=== PATIENT | female | born 1965 | race Two or more races ===

== ENCOUNTER 2024-12-02 07:22 | Emergency (ER) | payer MEDICAID ==
[~2024-12-02] VITALS: Ht 157.5 cm; Wt 59.0 kg
[2024-12-02 07:23] VITALS: O2SAT 98
[2024-12-02] MEDS: METHOCARBAMOL 500MG TABLET PO ONE (09:39)
[2024-12-02] MEDS: IBUPROFEN 600MG TABLET PO ONE (09:39)
[2024-12-02] MEDS ORDERED: IBUP-1455 MT (10:06)
[2024-12-02] MEDS ORDERED: METH-653 MT (10:06)
[2024-12-02 10:38] VITALS: BP 107/67; PULSE 79; RESP 16; TEMP 36.7; O2SAT 98
== END 2024-12-02 10:43 | disposition home or self-care (01) ==
LOC: ER 07:22
DX: S43.402A Unspecified sprain of left shoulder joint, initial encounter (principal); S43.401A Unspecified sprain of right shoulder joint, initial encounter; S83.91XA Sprain of unspecified site of right knee, initial encounter; S33.5XXA Sprain of ligaments of lumbar spine, initial encounter; E11.9 Type 2 diabetes mellitus without complications; Z79.899 Other long term (current) drug therapy; W19.XXXA Unspecified fall, initial encounter; Y93.89 Activity, other specified; Y92.89 Other specified places as the place of occurrence of the external cause; Y99.8 Other external cause status
CPT/HCPCS: 72100; 73030; 73562; 99284